=== PATIENT | male | born 1980 | race Two or more races ===

== ENCOUNTER 2017-04-13 22:04 | Inpatient (IN) | payer OTHER ==
[~2017-04-13] VITALS: Ht 165.1 cm; Wt 63.7 kg
[2017-04-13] MEDS ORDERED: MORPHINE SULFATE 4 MG/ML, 1ML ONE (22:38)
[2017-04-13] MEDS ORDERED: ONDANSETRON 2MG/ML, 2ML ONE (22:38)
[2017-04-13] MEDS ORDERED: FAMOTIDINE 20 MG/2 ML ONE (22:39)
[2017-04-13 22:59] LABS: HEMATOCRIT 45.3 % (39.2-51.8); HEMOGLOBIN 15.6 g/dL (13.7-18.0)
[2017-04-13] MEDS ORDERED: SODIUM CHLORIDE FLUSH 10ML SYR IVF ONE (23:00)
[2017-04-13] MEDS ORDERED: SODIUM CHLORIDE 0.9% 1,000ML IVBOLUS ONE (23:00)
[2017-04-13] MEDS ORDERED: FAMOTIDINE 20 MG/2 ML IVPush ONE (23:00)
[2017-04-13] MEDS ORDERED: ONDANSETRON 2MG/ML, 2ML IVPush ONE (23:00)
[2017-04-13] MEDS ORDERED: MORPHINE SULFATE 4 MG/ML, 1ML IVPush PRN (23:00)
[2017-04-13 23:11] LABS: BLOOD UREA NITROGEN 9 mg/dL (7-18)
[2017-04-13 23:18] LABS: ASPARTATE AMINO TRANSFERASE 1935 U/L (15-37)
[2017-04-14] MEDS ORDERED: OMNIPAQUE 350 MG/ML, 100ML BOTTLE ONE (01:42)
[2017-04-14 02:37] LABS: ACETAMINOPHEN < 2 mcg/mL (10-30)
[2017-04-14] MEDS ORDERED: ONDANSETRON 2MG/ML, 2ML IVPush PRN (03:00)
[2017-04-14] MEDS ORDERED: HYDROmorphone 2 MG/ML, 1ML IVPush PRN (03:00)
[2017-04-14 03:46] LABS: HIV 1&2 ANTIBODY SCREEN Nonreactive (Nonreactive); HIV-1 p24 ANTIGEN Nonreactive (Nonreactive)
[2017-04-14] MEDS: SODIUM CHLORIDE 0.9% 1,000 ML IV SCH ×3 (05:01→21:43)
[2017-04-14 05:14] VITALS: BP 101/66
[2017-04-14 05:19] VITALS: BP 101/66
[2017-04-14 07:19] VITALS: BP 108/66
[2017-04-14] MEDS: ENOXAPARIN 40 MG/0.4 ML SQ SCH (08:35)
[2017-04-14 11:27] LABS: HEMATOCRIT 42.3 % (39.2-51.8); HEMOGLOBIN 14.4 g/dL (13.7-18.0); WHITE BLOOD COUNT 7.1 x10^3/uL (3.4-10)
[2017-04-14 11:36] LABS: BLOOD UREA NITROGEN 6 mg/dL (7-18)
[2017-04-14 11:48] LABS: ASPARTATE AMINO TRANSFERASE 1712 U/L (15-37)
[2017-04-14] MEDS: PANTOPRAZOLE 20MG TABLET PO SCH (12:34)
[2017-04-14 13:30] VITALS: BP_SYST 114; BP_SYST 144; BP_DIAS 75; BP_DIAS 82
[2017-04-14 19:15] VITALS: BP 100/59
[2017-04-15] MEDS: PANTOPRAZOLE 20MG TABLET PO SCH ×2 (00:16→13:35)
[2017-04-15 02:40] VITALS: BP 93/58
[2017-04-15 04:51] LABS: HEMATOCRIT 41.2 % (39.2-51.8); HEMOGLOBIN 14.2 g/dL (13.7-18.0); WHITE BLOOD COUNT 6.9 x10^3/uL (3.4-10)
[2017-04-15 05:08] LABS: BLOOD UREA NITROGEN 4 mg/dL (7-18)
[2017-04-15 05:15] LABS: ASPARTATE AMINO TRANSFERASE 1675 U/L (15-37)
[2017-04-15 07:51] VITALS: BP 103/62
[2017-04-15] MEDS: ENOXAPARIN 40 MG/0.4 ML SQ SCH (09:29)
[2017-04-15] MEDS: SODIUM CHLORIDE 0.9% 1,000 ML IV SCH ×2 (09:29→20:30)
[2017-04-15 13:59] VITALS: BP 112/66
[2017-04-15 20:19] VITALS: BP 108/71
[2017-04-16] MEDS: PANTOPRAZOLE 20MG TABLET PO SCH ×2 (01:30→12:00)
[2017-04-16 02:40] VITALS: BP 97/61
[2017-04-16] MEDS: SODIUM CHLORIDE 0.9% 1,000 ML IV SCH (06:12)
[2017-04-16 06:17] LABS: ASPARTATE AMINO TRANSFERASE 1303 U/L (15-37); BLOOD UREA NITROGEN 5 mg/dL (7-18)
[2017-04-16 08:28] VITALS: BP_SYST 94; BP_SYST 97; BP_DIAS 60; BP_DIAS 63
[2017-04-16] MEDS: ENOXAPARIN 40 MG/0.4 ML SQ SCH (09:00)
[2017-04-16] MEDS ORDERED: FLU VACC QS2017-18 (36MOS+) UP/PF 0.5 ML IM-VACC ONE (10:30)
[2017-04-16] MEDS ORDERED: PNEUMOCOCCAL 23 VACCINE IM-VACC ONE (10:30)
[2017-04-16 15:02] VITALS: BP_SYST 101; BP_SYST 99; BP_DIAS 63; BP_DIAS 66
[2017-04-16] MEDS ORDERED: OMEP-110 PO (15:36)
[2017-04-16 19:11] VITALS: BP 111/70
== END 2017-04-16 19:20 | disposition home or self-care (01) | DRG 442 ==
LOC: ED 04-14 02:39 → SUATTDRO 04-14 02:41 → EDIP 04-14 02:44 → 3NE 04-14 04:13
PROVIDERS: ADMIT Hospitalist; ATTEND Hospitalist
DX: B15.9 Hepatitis A without hepatic coma (principal); E44.1 Mild protein-calorie malnutrition; B16.9 Acute hepatitis B without delta-agent and without hepatic coma; K21.9 Gastro-esophageal reflux disease without esophagitis; K29.70 Gastritis, unspecified, without bleeding; Z68.23 Body mass index [BMI] 23.0-23.9, adult
CPT/HCPCS: 36415; 74177; 76700; 80053; 80307; 81003; 82248; 82550; 83690; 83735; 84100; 84443; 85025; 85610; 86692; 86703; 86704; 86706; 86707; 86708; 86709; 86803; 87340; 87350; 87380; 87517; 87899; 96361; 96374; 96375; J1650; J2405; Q9967; G0435; J7030; S0028